=== PATIENT | male | born 1985 | race Caucasian/White ===

== ENCOUNTER 2016-10-14 20:35 | Emergency (ER) | payer OTHER ==
[~2016-10-14] VITALS: Ht 170.2 cm; Wt 70.3 kg
[2016-10-14 20:50] VITALS: BP 130/85
== END 2016-10-14 20:50 | disposition left against medical advice (07) ==
LOC: ED 20:35
DX: Z53.21 Procedure and treatment not carried out due to patient leaving prior to being seen by health care provider (principal)

== ENCOUNTER 2017-06-24 05:53 | Emergency (ER) | payer OTHER ==
[~2017-06-24] VITALS: Ht 167.6 cm; Wt 69.9 kg
[2017-06-24 06:19] VITALS: Ht 167.6 cm; Wt 69.9 kg
[2017-06-24 06:43] VITALS: BP 150/79
== END 2017-06-24 06:43 | disposition home or self-care (01) ==
LOC: ED 05:53
DX: K08.89 Other specified disorders of teeth and supporting structures (principal)